=== PATIENT | female | born 1975 | race Hispanic/Latino ===

== ENCOUNTER 2016-07-29 | Emergency (ER) | payer OTHER ==
[~2016-07-29] MED LIST: BIOTIN1 M1 PO; CALCIUM 500 +1 EAC5 PO; SEA-OMEGA 50 C1 EACH PO; SYNTHROID175 MCG PO
--- NOTE | 2016-07-29 00:10 | ED GENERAL ADULT ---
History of Present Illness General Chief Complaint: Animal/Insect Bite Stated Complaint: PT C/O TICK ON HEAD Source: patient Exam Limitations: no limitations Vital Signs & Intake/Output Vital Signs & Intake/Output Vital Signs Date Time Temp Pulse Resp B/P B/P Pulse O2 O2 Flow FiO2 Mean Ox Delivery Rate 07/29 0012 97.2 71 18 149/83 98 Allergies Coded Allergies: codeine (HIVES 06/29/15) latex (HIVES, SWELL AT SITE OF CONTACT 06/29/15) oxycodone (From Percocet) (HIVES 06/29/15) Reconcile Medications Biotin (Unknown Strength) TABLET (Unknown Dose) PO QPM SUPPLEMENT (Reported) Calcium Carbonate/Vitamin D3 (Calcium 500 + D Tablet) 1 EACH TABLET 1 TAB PO QPM SUPPLEMENT (Reported) Fish Oil (Sea-Rotan 50 Capsule) 1 EACH CAPSULE 1 CAP PO QPM SUPPLEMENT ( Reported) Levothyroxine Sodium (Synthroid) 175 MCG TABLET 1 TAB PO DAILY AC THYROID ( Reported) Triage Nurses Notes Reviewed? yes HPI: This is a 41 yo female who comes in with CC tick on head. She denies any recent hiking or extensive outdoor exposure. She did mow the lawn two days ago. Tick was found 15 min prior to coming to ed (ROB MCDERMOTT MD) Past History Medical History Any Pertinent Medical History? 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 No (ROB MCDERMOTT MD) Psychosocial History Tobacco Use: Never used ETOH Use: occasional use Illicit Drug Use: denies illicit drug use (CAROLINE OSULLIVAN MD) Review of Systems Review of Systems Constitutional: Reports: no symptoms. (ROB MCDERMOTT MD) Review of Systems Respiratory: Reports: no symptoms. Cardiovascular: Reports: no symptoms. GI: Reports: no symptoms. Neurological/Psychological: Reports: no symptoms. (CAROLINE OSULLIVAN MD) Physical Exam Physical Exam General Appearance: well developed/nourished, no apparent distress, alert, awake Head: HAS A TICK IN HAIR AT NAPE OF NECK Eyes: Bilateral: PERRL, EOMI. Ears, Nose, Throat: normal pharynx Neck: normal inspection, supple Respiratory: normal breath sounds, chest non-tender Cardiovascular: regular rate/rhythm Gastrointestinal: normal bowel sounds, soft, non-tender Skin: NO RASH NOTED Core Measures ACS in differential dx? No CVA/TIA Diagnosis: No Severe Sepsis Present: No Septic Shock Present: No (ROB MCDERMOTT MD) Physical Exam Extremities: normal inspection, normal capillary refill, normal range of motion, no edema Neurologic/Psych: no motor/sensory deficits, awake, alert, oriented x 3, normal gait, normal mood/affect (CAROLINE OSULLIVAN MD) Progress Differential Diagnoses I considered the following diagnoses in my evaluation of the patient: [TICK BITE , LYME DISEASE ] Plan of Care: REMOVE TICKInitial ED EKG: none Comments: The tick was not engorged. It was successfully removed with the use of peppermint oil and tweezers. Entire body was removed. No residual parts in scalp. Pt given one dose of doxycycline as prophylaxis (ROB MCDERMOTT MD) Differential Diagnoses I considered the following diagnoses in my evaluation of the patient: Plan of Care: REMOVE TICK (CAROLINE OSULLIVAN MD) Departure Departure Disposition: HOME OR SELF CARE Condition: Stable Clinical Impression Primary Impression: Tick bite Qualifiers: Encounter type: initial encounter Qualified Code: W57.XXXA - Bitten or stung by nonvenomous insect and other nonvenomous arthropods, initial encounter Referrals: TERRY MILLER DO (PCP/Family) Additional Instructions: 1. If you develop rash then go go see your PCP 2. When outdoors use full sleeved clothing and other protective measures as tick repellant. Departure Forms: Customer Survey General Discharge Information (ROB MCDERMOTT MD) Resident Co-Sign Statement Statement: ED Attending supervision documentation- [X] I saw and evaluated the patient. I have also reviewed all the pertinent lab results and diagnostic results. I agree with the findings and the plan of care as documented in the Resident's documentation. [X] I have reviewed the ED Record and agree with the Resident's documentation. [] Additions or exceptions (if any) to the Resident's note and plan are summarized below: [] (ABRAN ADAMS,CAROLINE Lynn) Critical Care Note Critical Care Note Critical Care Time: non-applicable (SHARRON ADAMS,ROB)
[2016-07-29 00:12] VITALS: BP 149/83
== END 2016-07-29 00:42 ==
LOC: ERH
DX: S00.06XA Insect bite (nonvenomous) of scalp, initial encounter (principal); W57.XXXA Bitten or stung by nonvenomous insect and other nonvenomous arthropods, initial encounter